=== PATIENT | male | born 1990 | race Caucasian/White ===

== ENCOUNTER 2018-08-13 02:05 | Emergency (ER) | payer SELFPAY ==
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
--- NOTE | 2018-08-13 04:01 | CR ---
INDICATION: Pain COMPARISON: None available. TECHNIQUE: The right hand is examined with PA, lateral, and oblique views. FINDINGS: There is no sign of fracture or dislocation. The soft tissues are normal in appearance without sign of radio-opaque foreign body. There is mild primary osteoarthritis of the 3rd DIP joint. No additional degenerative disease is seen. 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 Otherwise normal right hand. Dictated by Arnoldo Griffin MD @ Aug 13 2018 3:58AM Signed by Dr. Arnoldo Griffin @ Aug 13 2018 4:00AM
== END 2018-08-13 04:14 ==
LOC: MW.ED 02:05
DX: S61.411A Laceration without foreign body of right hand, initial encounter (principal); Y04.2XXA Assault by strike against or bumped into by another person, initial encounter
CPT/HCPCS: 73130-26-RT; 73130-RT; 99283